=== PATIENT | female | born 1995 | race Caucasian/White ===

== ENCOUNTER 2022-08-15 19:04 | Emergency (ER) | payer MEDICAID, OTHER ==
[~2022-08-15 19:04] MED LIST: ETON1VAG5 VG; ONDA8TAB9 PO
== END 2022-08-15 20:21 | disposition left against medical advice (07) ==
LOC: ER 19:04
DX: Z04.1 Encounter for examination and observation following transport accident (principal); Z53.21 Procedure and treatment not carried out due to patient leaving prior to being seen by health care provider; V87.7XXA Person injured in collision between other specified motor vehicles (traffic), initial encounter; Y93.89 Activity, other specified; Y92.89 Other specified places as the place of occurrence of the external cause; Y99.8 Other external cause status